=== PATIENT | female | born 1960 | race American Indian/Alaskan Native ===

== ENCOUNTER 2017-04-04 10:27 | Emergency (ER) | payer MEDICARE ==
[2017-04-04] MEDS ORDERED: DUONEB *Not for PRN Use IH ONE (15:36)
--- NOTE | 2017-04-04 15:37 | Emergency Department Report ---
Chief Complaint: Upper Respiratory Infection Stated Complaint: FLU LIKE SYMPTOMS - HPI History of Present Illness: 57 yo female with hx of tobacco use presents with cough, nasal congestion and wheezing. She desires a breathing treatment. Brief exam: Clear breath sounds on auscultation - Exam Vital Signs: Vital Signs 04/04/17 11:13 Temperature 98.3 F Pulse Rate 83 Respiratory 18 Rate Blood Pressure 146/86 O2 Sat by Pulse 96 Oximetry MSE screening note: Focused history and physical exam performed. Due to findings the following was ordered: ED Disposition for MSE Condition: Stable Referrals: PRIMARY CARE, [Primary Care Provider] - 3-5 Days
--- NOTE | 2017-04-04 15:43 | Emergency Department Report ---
HPI - General Chief Complaint: Upper Respiratory Infection Time Seen by Provider: 04/04/17 15:42 - HPI HPI: 57 yo female with hx of tobacco use presents with cough, nasal congestion and wheezing. She desires a breathing treatment. Patient complained of flulike symptoms since Saturday. She reports productive cough. Nasal congestion sore throat and chills with sneezing. Denies any fever. Patient says she has asthma and she has some wheezing. She says she's been having postnasal drip for the last 2 weeks. Denies any shortness of breath or chest pain. Generalized body ache and sore throat is 8 out of 10. No drooling. No difficulty swallowing. She takes albuterol at home for asthma. Patient wishes been taking [id number] cough and cold without any relief. She was last year and 03/21/2015 for asthma exacerbation. ED Past Medical Hx - Past Medical History Previous Medical History?: Yes Hx Hypertension: Yes Hx Congestive Heart Failure: No Hx Diabetes: No Hx Seizures: Yes Hx Psychiatric Treatment: Yes (Bipolar) Hx Asthma: Yes Hx COPD: No Additional medical history: Psychiatric disorder - Surgical History Past Surgical History?: Yes Additional Surgical History: bilateral heel spur. Bipolar disorder - Family History Family history: hypertension - Social History Smoking Status: Current Every Day Smoker Substance Use Type: None - Medications Home Medications: Home Medications Medication Instructions Recorded Confirmed Last Taken Type Propranolol HCl 20 mg PO BID 03/01/13 08/11/13 08/10/13 08:00 History Folic Acid [Folvite] 1 mg PO QDAY #30 tablet 08/18/13 Unknown Rx risperiDONE [RisperDAL] 1 mg PO BID #60 tablet 08/18/13 Unknown Rx Albuterol Sulfate [Ventolin HFA] 2 puff IH Q4H PRN #1 hfa.aer.ad 03/21/15 Unknown Rx Promethazine /Codeine 10 ml PO Q6H PRN #8 oz 03/21/15 Unknown Rx [Phenergan/Codeine 6.25-10 mg/5Ml] Amoxicillin/K Clav Tab [Augmentin 1 tab PO Q12HR 10 Days #20 tab 04/04/17 Unknown Rx 875 mg] Cetirizine HCl [ZyrTEC] 10 mg PO QAM #10 capsule 04/04/17 Unknown Rx Chlorpheniramine/Dextromethorp 1 each PO Q8H PRN 4 Days #12 tablet 04/04/17 Unknown Rx [Coricidin Hbp Cough & Cold Tab] Fluticasone [Flonase] 1 spray NS QDAY 10 Days #1 bottle 04/04/17 Unknown Rx Prednisone [predniSONE 10 mg 10 mg PO .TAPER 6 Days #1 tab.ds.pk 04/04/17 Unknown Rx (6-Day Pack, 21 Tabs)] ED Review of Systems ROS: Stated complaint: FLU LIKE SYMPTOMS Other details as noted in HPI Comment: All other systems reviewed and negative Constitutional: no symptoms reported Eyes: denies: eye pain, eye discharge ENT: throat pain, congestion. denies: dental pain, hearing loss, epistaxis Respiratory: cough, wheezing. denies: orthopnea, shortness of breath, SOB with exertion, SOB at rest, stridor Cardiovascular: denies: chest pain, palpitations, dyspnea on exertion, edema, syncope, paroxysmal nocturnal dyspnea Gastrointestinal: denies: abdominal pain, nausea, vomiting, diarrhea, constipation Genitourinary: denies: dysuria, hematuria Musculoskeletal: myalgia. denies: back pain, joint swelling, arthralgia Skin: denies: rash Neurological: denies: headache Physical Exam - Physical Exam Vital Signs: Vital Signs 04/04/17 11:13 Temperature 98.3 F Pulse Rate 83 Respiratory 18 Rate Blood Pressure 146/86 O2 Sat by Pulse 96 Oximetry Vital Signs 04/04/17 04/04/17 11:13 16:16 Temperature 98.3 F Pulse Rate 83 Pulse Rate [ 83 Anterior Throughout] Respiratory 18 Rate Respiratory 18 Rate [Anterior Throughout] Blood Pressure 146/86 O2 Sat by Pulse 96 Oximetry General: This is a 57-year-old female well-nourished well-developed in no acute distress. Physical Exam: Head: Normocephalic, atraumatic, no abrasion, no bruising and no contusion. Eyes: Biateral pupils equal and reactive to light, bilateral EOM intact.. Bilateral conjunctival and sclera without injection, normal accommodation. No nystagmus Mouth: Moist, no pharyngeal exudate or erythema. No peritonsillar abscesses. Uvula is midline and oral airways patent. Ears: Bilateral TM congested without erythema. Bilateral EAC without any redness swelling or drainage. No mastoid bone tenderness Nose: Bilateral nasal turbinates congested with erythema and clear drainage. Maxillary and frontal sinuses non-tender to palpate. Neck: Supple, No Cervical adenopathy, full range of motion and no C-spine tenderness. No swelling or tracheal deviation normal reflexes Cardiovascular: S1, S2. Regular rate and rhythm. No murmur. Capillary refill is less then 3 seconds. Lungs: No rhonchi wheezes or rales. Scattered wheezes upper lung field and dry cough. No chest wall tenderness. No chest contusion. No bruising to chest. MSK: Strength 5/5 in all extremities. No joint deformity or crepitus. Normal inspection. Full range of motion to all extremities. No laceration, abrasion or ecchymotic area noted. Abdomen: Non-tender to palpate in all quadrants, no guarding or rebound tenderness, positive bowel sounds in all quadrants. No CVA tenderness. No hernia, bruit or mass. No rigidity or distention. Extremities: No clubbing, cyanosis or edema. +2 pulses. No neurovascular compromise Skin: Clean, dry and intact. No rash or lesions. Oral rails Neurological: GCS at 15, Pt is alert and oriented 3 speech is clear period. 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 Normal gait. Negative Romberg and no pronator drift. Normal Reflexes. No motor or sensory deficit Back: No vertebral tenderness, no paraspinal tenderness. Ambulates without any difficulties. Psych: Normal mood and behavior ED Course Vital Signs 04/04/17 11:13 Temperature 98.3 F Pulse Rate 83 Respiratory 18 Rate Blood Pressure 146/86 O2 Sat by Pulse 96 Oximetry Vital Signs 04/04/17 04/04/17 11:13 16:16 Temperature 98.3 F Pulse Rate 83 Pulse Rate [ 83 Anterior Throughout] Respiratory 18 Rate Respiratory 18 Rate [Anterior Throughout] Blood Pressure 146/86 O2 Sat by Pulse 96 Oximetry - Reevaluation(s) Reevaluation #1: 04/04/17 16:27 Patient received DuoNeb 1 treatment and Doppler flow 60 mg by mouth. Upon her evaluation on sounds are clear and patient says she feels better. ED Medical Decision Making - Medical Decision Making ED course: Patient here presented with flulike symptoms with wheezing. She has a history of asthma has been having postnasal drainage for the last couple weeks. I discussed the patient that she has mild asthma exacerbation with upper respiratory cough and congestion. I discussed diagnosis and treatment plan with her and she is in agreement. Patient given DuoNeb 1 with relief of her wheezing and and prednisone 60 mg by mouth. Patient discharged home to follow up with her primary care physician which she does have access to and 3-5 days. Patient discharged home with prescription for Medrol Dosepak which she is taken in the past, Augmentin, Flonase and Zyrtec and Robitussin DM Critical care attestation.: If time is entered above; I have spent that time in minutes in the direct care of this critically ill patient, excluding procedure time. ED Disposition Clinical Impression: URI with cough and congestion Asthma exacerbation attacks Qualifiers: Asthma severity: mild Asthma persistence: intermittent Qualified Code(s): J45.21 - Mild intermittent asthma with (acute) exacerbation Pharyngitis Qualifiers: Pharyngitis/tonsillitis etiology: unspecified etiology Qualified Code(s): J02.9 - Acute pharyngitis, unspecified Disposition: - TO HOME OR SELFCARE Is pt being admited?: No Does the pt Need Aspirin: No Condition: Stable Instructions: Asthma (ED), Acute Cough (ED), Cold Symptoms (ED) Additional Instructions: Please increase her fluid intake to 2-3 L of water, cranberry juice and apple juice daily Follow-up with your primary care physician in 3-5 days Take medication as prescribed Please take your albuterol inhaler every 4-6 hours over the next 48 hours then when necessary Prescriptions: Amoxicillin/K Clav Tab [Augmentin 875 mg] 1 tab PO Q12HR 10 Days #20 tab Cetirizine HCl [ZyrTEC] 10 mg PO QAM #10 capsule Chlorpheniramine/Dextromethorp [Coricidin Hbp Cough & Cold Tab] 1 each PO Q8H PRN 4 Days #12 tablet PRN Reason: Cough Fluticasone [Flonase] 1 spray NS QDAY 10 Days #1 bottle Prednisone [predniSONE 10 mg (6-Day Pack, 21 Tabs)] 10 mg PO .TAPER 6 Days #1 tab.ds.pk Referrals: PRIMARY CARE, [Primary Care Provider] - 3-5 Days Forms: Work/School Release Form(ED)
[2017-04-04] MEDS ORDERED: DELTASONE PO ONE (16:00)
[2017-04-04 16:44] VITALS: BP 154/84
== END 2017-04-04 16:45 | disposition home or self-care (01) ==
LOC: ED 10:27
DX: J06.9 Acute upper respiratory infection, unspecified (principal); J02.9 Acute pharyngitis, unspecified; J45.21 Mild intermittent asthma with (acute) exacerbation; F17.200 Nicotine dependence, unspecified, uncomplicated
CPT/HCPCS: 94640; 99283; J7512